=== PATIENT | female | born 1955 | race Caucasian/White ===

== ENCOUNTER 2023-04-17 11:34 | Day surgery (SDC) | payer MEDICARE, OTHER ==
[~2023-04-17] VITALS: Ht 167.6 cm; Wt 70.4 kg
[~2023-04-17 11:34] MED LIST: CEFD300C42 PO; HYDR2TAB2; HYDR4CRE; KETO10TAB; ONDA4TAB6 PO; OXYB5TAB11 PO; ceFAZolin SOD 2 GM in IV 1 EA IV ONE
[2023-04-17] MEDS ORDERED: LR 1,000 ML IV SCH (12:30)
[2023-04-17] MEDS ORDERED: fentaNYL 100 MCG/2 ML INJECTION As Ordered ONE (13:01)
[2023-04-17] MEDS ORDERED: MIDAZOLAM INJ 2MG/2ML VIAL As Ordered ONE (13:01)
[2023-04-17] MEDS ORDERED: LIDOCAINE 2% 100MG/5ML SDV (FOR ANES.) As Ordered ONE (13:01)
[2023-04-17] MEDS ORDERED: propofoL 200 MG/20 ML VIAL As Ordered ONE (13:02)
[2023-04-17 15:22] VITALS: BP 128/72; TEMP 98.3; O2SAT 98
== END 2023-04-17 15:43 | disposition home or self-care (01) ==
LOC: M SDC 11:34
PROVIDERS: ATTEND Urology
DX: N20.0 Calculus of kidney (principal); K21.9 Gastro-esophageal reflux disease without esophagitis; L40.9 Psoriasis, unspecified; Z91.041 Radiographic dye allergy status; Z88.2 Allergy status to sulfonamides
CPT/HCPCS: 50590; 74018; J2250; J3010

== ENCOUNTER → 2023-05-14 | Outpatient (CLI) | payer MEDICARE, OTHER ==
[~2023-05-14] MED LIST changes: -ceFAZolin SOD 2 GM in IV 1 EA IV ONE
== END ==
LOC: M RAD 15:07
PROVIDERS: ATTEND Urology
DX: N20.1 Calculus of ureter (principal); Z96.0 Presence of urogenital implants

== ENCOUNTER → 2023-06-04 | Outpatient (REF) | payer MEDICARE, OTHER ==
[~2023-06-04] MED LIST changes: +CEFD1CAP9 PO; -CEFD300C42 PO
== END ==
LOC: M LAB REF 12:18
PROVIDERS: ATTEND Internal Medicine
DX: N39.0 Urinary tract infection, site not specified (principal)

== ENCOUNTER → 2023-06-09 | Outpatient (CLI) | payer MEDICARE, OTHER | LOC: M WHC 08:38 | PROVIDERS: ATTEND Internal Medicine | DX: N20.0 Calculus of kidney (principal) ==